=== PATIENT | female | born 1930 | race Caucasian/White ===

== ENCOUNTER 2017-11-01 13:55 | Inpatient (IN) | payer OTHER ==
[2017-11-01] MEDS: SOD CHLORIDE 0.9% 1,000 ML IV ×2 (15:05→17:40)
[2017-11-01 15:08] LABS: HEMATOCRIT 36.5 % (37.0-47.0); HEMOGLOBIN 12.2 g/dl (12.0-16.0); MEAN CORPUSCULAR HEMOGLOBIN 32.9 pg (29.0-33.0); MEAN CORPUSCULAR HGB CONC 33.4 g/dl (32.0-37.0); MEAN CORPUSCULAR VOLUME 98.4 fl (82.0-101.0); MEAN PLATELET VOLUME 9.6 fl (7.4-10.4); PLATELET COUNT 122 10^3/UL (140-415); RED BLOOD COUNT 3.71 10^6/ul (4.20-5.40); RED CELL DISTRIBUTION WIDTH 12.9 % (11.5-14.5)
[2017-11-01 15:08] LABS: WHITE BLOOD COUNT 19.8 10^3/ul (4.8-10.8)
[2017-11-01 15:18] LABS: ADD MAN DIFF? YES; POSITIVE DIFF @See below
[2017-11-01 15:38] LABS: ALANINE AMINOTRANSFERASE 29 IU/L (13-69); ALBUMIN 3.7 g/dl (3.3-4.9); ALBUMIN/GLOBULIN RATIO 1.23; ALKALINE PHOSPHATASE 95 IU/L (42-121); ANION GAP 18 (8-16); ASPARTATE AMINO TRANSFERASE 48 IU/L (15-46); BLOOD UREA NITROGEN 32 mg/dl (7-20); CALCIUM 9.9 mg/dl (8.4-10.2); CARBON DIOXIDE 22 mmol/L (21-31); CHLORIDE 102 mmol/L (97-110); CREATININE 1.41 mg/dl (0.44-1.00); GLUCOSE 110 mg/dl (70-220); LIPASE 43 U/L (23-300); POTASSIUM 5.9 mmol/L (3.5-5.1); SODIUM 136 mmol/L (135-144); TOTAL PROTEIN 6.7 g/dl (6.1-8.1)
[2017-11-01 15:39] LABS: ADD UMIC NO; UR ASCORBIC ACID NEGATIVE (NEGATIVE); UR BILIRUBIN (Dip) NEGATIVE (NEGATIVE); UR BLOOD (Dip) NEGATIVE (NEGATIVE); UR CLARITY CLEAR (CLEAR); UR COLOR YELLOW (YELLOW); UR GLUCOSE (Dip) NEGATIVE (NEGATIVE); UR KETONES (Dip) NEGATIVE (NEGATIVE); UR LEUKOCYTE ESTERASE (Dip) NEGATIVE Leu/ul (NEGATIVE); UR NITRITE (Dip) NEGATIVE (NEGATIVE); UR SPECIFIC GRAVITY (Dip) 1.018 (1.003-1.030); UR TOTAL PROTEIN (Dip) NEGATIVE (NEGATIVE); UR UROBILINOGEN (Dip) 2+ mg/dL (NEGATIVE)
[2017-11-01 15:42] LABS: ANISOCYTOSIS 1+ (0-0); BAND NEUTROPHILS #M 4.1 10^3/ul (0.0-0.6); BAND NEUTROPHILS % (M) 21 % (0-4); EOSINOPHILS % (M) 1 % (0-7); GIANT THROMBO% (M) 1 % (0-0); LYMPHOCYTES #M 0.9 10^3/ul (0.8-2.9); LYMPHOCYTES % (M) 5 % (15-51); MONOCYTE #M 0.3 10^3/ul (0.3-0.9); MONOCYTES % (M) 2 % (0-11); PLATELET ESTIMATE DECREASED; POLYCHROMASIA 3+ (0-0); SEG NEUT #M 14.7 10^3/ul (1.6-7.5); SEGMENTED NEUTROPHILS (M) % 70 % (39-77); SMUDGE%M 8 % (0-0)
[2017-11-01 15:48] LABS: TROPONIN-I 0.018 ng/ml (0.000-0.120)
[2017-11-01] MEDS: CA CHLORIDE 10% 10 ML SYRINGE IV (16:32)
[2017-11-01] MEDS: NA BICARBONATE 8.4% 50 ML SYG IV (16:32)
[2017-11-01] MEDS: FUROSEMIDE 40 MG INJ IV (16:34)
[2017-11-01] MEDS ORDERED: DILTIAZEM 25 MG INJ (16:46)
[2017-11-01] MEDS: DILTIAZEM 25 MG INJ IV (16:50)
[2017-11-01] MEDS: PIPER-TAZO 3.375 GM IV (PMX) 100 ML IVPB (17:40)
[2017-11-01] MEDS ORDERED: ACETAMINOPHEN 325 MG TAB PO (18:00)
[2017-11-01 18:28] LABS: LACTIC ACID 3.8 mmol/L (0.5-2.0)
[2017-11-01] MEDS: SOD CHLORIDE 0.45% 1,000 ML IV (18:33)
[2017-11-01] MEDS: VANCOMYCIN 1 GM (PMX) 250 ML IVPB (18:35)
[2017-11-01] MEDS ORDERED: ONDANSETRON 4 MG INJ IV (19:00)
[2017-11-01] MEDS ORDERED: MAGNESIUM HYDROXIDE 30ML CUP PO (19:00)
[2017-11-01] MEDS ORDERED: hydrALAzine 20 MG INJ IV (19:00)
[2017-11-01] MEDS ORDERED: DOCUSATE SODIUM 100 MG CAP PO (19:00)
[2017-11-01] MEDS ORDERED: NA PHOSPHATE/BIPHOS 133 ML ENEMA PR (19:00)
[2017-11-01] MEDS ORDERED: HYDROCODONE/APAP (5/325) TAB PO (19:00)
[2017-11-01] MEDS ORDERED: NITROGLYCERIN (SL) 0.4 MG TAB SL (19:00)
[2017-11-01] MEDS ORDERED: LORAZEPAM 2 MG INJ IV (19:00)
[2017-11-01] MEDS ORDERED: MECLIZINE 25 MG TAB PO (19:00)
[2017-11-01] MEDS ORDERED: NACL 0.9% 3 ML SYG IV (19:00)
[2017-11-01 19:40] LABS: FREE T4 (FREE THYROXINE) 1.63 ng/dl (0.85-1.93)
[2017-11-01] MEDS: ONDANSETRON 4 MG INJ IV (19:40)
[2017-11-01] MEDS: morphine 2 MG INJ IV (19:41)
[2017-11-01] MEDS ORDERED: HEPARIN 5,000 UNIT/0.5 ML VIAL SC (21:00)
[2017-11-01 23:10] LABS: ANION GAP 14 (8-16); BLOOD UREA NITROGEN 29 mg/dl (7-20); CALCIUM 9.9 mg/dl (8.4-10.2); CARBON DIOXIDE 24 mmol/L (21-31); CHLORIDE 104 mmol/L (97-110); CREATININE 1.35 mg/dl (0.44-1.00); GLUCOSE 103 mg/dl (70-220); POTASSIUM 4.9 mmol/L (3.5-5.1); SODIUM 137 mmol/L (135-144)
[2017-11-01] MEDS: PIPER-TAZO 2.25 GM (PMX) 50 ML IVPB (23:36)
[2017-11-02] MEDS: PIPER-TAZO 2.25 GM (PMX) 50 ML IVPB ×3 (06:17→22:01)
[2017-11-02] MEDS: LEVOTHYROXINE 25 MCG TAB PO (06:18)
[2017-11-02] MEDS: PANTOPRAZOLE 40 MG INJ IV (06:18)
[2017-11-02 08:42] LABS: WHITE BLOOD COUNT 15.8 10^3/ul (4.8-10.8)
[2017-11-02 08:42] LABS: HEMATOCRIT 31.6 % (37.0-47.0); HEMOGLOBIN 10.5 g/dl (12.0-16.0); MEAN CORPUSCULAR HEMOGLOBIN 32.8 pg (29.0-33.0); MEAN CORPUSCULAR HGB CONC 33.2 g/dl (32.0-37.0); MEAN CORPUSCULAR VOLUME 98.8 fl (82.0-101.0); MEAN PLATELET VOLUME 10.6 fl (7.4-10.4); PLATELET COUNT 108 10^3/UL (140-415); RED CELL DISTRIBUTION WIDTH 13.1 % (11.5-14.5)
[2017-11-02 08:58] LABS: ADD MAN DIFF? YES; POSITIVE DIFF @See below
[2017-11-02 09:03] LABS: ANION GAP 14 (8-16); BLOOD UREA NITROGEN 32 mg/dl (7-20); CARBON DIOXIDE 24 mmol/L (21-31); CHLORIDE 104 mmol/L (97-110); CREATININE 1.53 mg/dl (0.44-1.00); GLUCOSE 91 mg/dl (70-220); MAGNESIUM 1.1 mg/dl (1.7-2.5); PHOSPHORUS 3.6 mg/dl (2.5-4.9); POTASSIUM 4.5 mmol/L (3.5-5.1); SODIUM 137 mmol/L (135-144)
[2017-11-02 09:08] LABS: LACTIC ACID 1.7 mmol/L (0.5-2.0)
[2017-11-02 09:16] LABS: CHOLESTEROL 75 mg/dl (100-200)
[2017-11-02 09:16] LABS: CHOL/HDL RATIO 1.9 RATIO; HDL CHOLESTEROL 39 mg/dl (33-92); LDL CHOLESTEROL,CALCULATED 25 mg/dl; TRIGLYCERIDES 56 mg/dl (0-149)
[2017-11-02 09:25] LABS: HEMOGLOBIN A1C 5.4 % (0-5.9)
[2017-11-02 09:33] LABS: THYROID STIMULATING HORMONE 0.711 MIU/L (0.465-4.680)
[2017-11-02] MEDS: SOD CHLORIDE 0.45% 1,000 ML IV ×2 (09:57→21:12)
[2017-11-02 10:53] LABS: BAND NEUTROPHILS #M 2.5 10^3/ul (0.0-0.6); BAND NEUTROPHILS % (M) 16 % (0-4); LYMPHOCYTES #M 1.1 10^3/ul (0.8-2.9); LYMPHOCYTES % (M) 7 % (15-51); MONOCYTE #M 0.6 10^3/ul (0.3-0.9); MONOCYTES % (M) 4 % (0-11); PLATELET ESTIMATE DECREASED; SEG NEUT #M 11.9 10^3/ul (1.6-7.5); SEGMENTED NEUTROPHILS (M) % 73 % (39-77); SMUDGE%M 22 % (0-0)
[2017-11-02] MEDS: MAGNESIUM SULFATE 4 GM/100 ML 100 ML IVPB (12:38)
[2017-11-02 15:07] LABS: LACTIC ACID 1.7 mmol/L (0.5-2.0)
[2017-11-02 19:34] LABS: LACTIC ACID 1.6 mmol/L (0.5-2.0)
[2017-11-02] MEDS: ACETAMINOPHEN 325 MG TAB PO (21:10)
[2017-11-03 01:46] LABS: LACTIC ACID 1.3 mmol/L (0.5-2.0)
[2017-11-03] MEDS: SOD CHLORIDE 0.45% 1,000 ML IV ×3 (06:00→19:36)
[2017-11-03] MEDS: PIPER-TAZO 2.25 GM (PMX) 50 ML IVPB ×3 (06:06→21:33)
[2017-11-03] MEDS: PANTOPRAZOLE 40 MG INJ IV (06:06)
[2017-11-03] MEDS: LEVOTHYROXINE 25 MCG TAB PO (06:06)
[2017-11-03 09:11] LABS: ADD MAN DIFF? NO
[2017-11-03 09:12] LABS: WHITE BLOOD COUNT 14.1 10^3/ul (4.8-10.8)
[2017-11-03 09:12] LABS: BASOPHILS % 0.2 % (0.0-2.0); EOSINOPHILS # 0.1 10^3/ul (0.0-0.5); EOSINOPHILS % 0.4 % (0.0-7.0); HEMATOCRIT 34.1 % (37.0-47.0); HEMOGLOBIN 11.6 g/dl (12.0-16.0); LYMPHOCYTES # 0.9 10^3/ul (0.8-2.9); MEAN CORPUSCULAR VOLUME 97.2 fl (82.0-101.0); MEAN PLATELET VOLUME 10.8 fl (7.4-10.4); MONOCYTE # 0.6 10^3/ul (0.3-0.9); MONOCYTES % 3.9 % (0.0-11.0); NEUTROPHIL # 12.4 10^3/ul (1.6-7.5); NEUTROPHILS % 88.4 % (39.0-77.0); PLATELET COUNT 115 10^3/UL (140-415); RED BLOOD COUNT 3.51 10^6/ul (4.20-5.40); RED CELL DISTRIBUTION WIDTH 12.9 % (11.5-14.5)
[2017-11-03 09:52] LABS: ANION GAP 13 (8-16)
[2017-11-03 09:53] LABS: MAGNESIUM 2.8 mg/dl (1.7-2.5)
[2017-11-03 09:56] LABS: BLOOD UREA NITROGEN 30 mg/dl (7-20); CALCIUM 9.5 mg/dl (8.4-10.2); CARBON DIOXIDE 24 mmol/L (21-31); CHLORIDE 106 mmol/L (97-110); CREATININE 1.47 mg/dl (0.44-1.00); GLUCOSE 79 mg/dl (70-220); POTASSIUM 4.5 mmol/L (3.5-5.1); SODIUM 138 mmol/L (135-144)
[2017-11-03] MEDS ORDERED: morphine LIQ (10 MG/5 ML) CUP PO (19:30)
[2017-11-03] MEDS: ALBUTEROL/IPRATROPIUM (NEB) 3 ML AMP HHN (20:25)
[2017-11-04] MEDS: SOD CHLORIDE 0.45% 1,000 ML IV (00:42)
[2017-11-04] MEDS: PIPER-TAZO 2.25 GM (PMX) 50 ML IVPB (05:54)
[2017-11-04] MEDS: PANTOPRAZOLE 40 MG INJ IV (06:39)
[2017-11-04] MEDS: LEVOTHYROXINE 25 MCG TAB PO (06:39)
[2017-11-04 09:44] LABS: ADD MAN DIFF? NO
[2017-11-04 09:48] LABS: BASOPHILS % 0.2 % (0.0-2.0); EOSINOPHILS # 0.1 10^3/ul (0.0-0.5); EOSINOPHILS % 0.6 % (0.0-7.0); HEMATOCRIT 32.6 % (37.0-47.0); HEMOGLOBIN 10.8 g/dl (12.0-16.0); LYMPHOCYTES # 0.9 10^3/ul (0.8-2.9); LYMPHOCYTES % 9.6 % (15.0-51.0); MEAN CORPUSCULAR HGB CONC 33.1 g/dl (32.0-37.0); MEAN CORPUSCULAR VOLUME 96.7 fl (82.0-101.0); MEAN PLATELET VOLUME 10.5 fl (7.4-10.4); MONOCYTE # 0.4 10^3/ul (0.3-0.9); MONOCYTES % 4.3 % (0.0-11.0); NEUTROPHIL # 7.5 10^3/ul (1.6-7.5); NEUTROPHILS % 84.7 % (39.0-77.0); PLATELET COUNT 141 10^3/UL (140-415); RED BLOOD COUNT 3.37 10^6/ul (4.20-5.40); RED CELL DISTRIBUTION WIDTH 12.8 % (11.5-14.5)
[2017-11-04 09:48] LABS: WHITE BLOOD COUNT 8.9 10^3/ul (4.8-10.8)
[2017-11-04 10:03] LABS: ANION GAP 11 (8-16); BLOOD UREA NITROGEN 18 mg/dl (7-20); CALCIUM 9.4 mg/dl (8.4-10.2); CARBON DIOXIDE 23 mmol/L (21-31); CHLORIDE 111 mmol/L (97-110); CREATININE 1.31 mg/dl (0.44-1.00); GLUCOSE 79 mg/dl (70-220); POTASSIUM 3.7 mmol/L (3.5-5.1); SODIUM 141 mmol/L (135-144)
== END 2017-11-04 12:50 | disposition home or self-care (01) | DRG 872 ==
LOC: E/R 13:55 → TEL 20:35
DX: A41.9 Sepsis, unspecified organism (principal); L03.115 Cellulitis of right lower limb; E87.2 Acidosis; I47.1 Supraventricular tachycardia; N17.9 Acute kidney failure, unspecified; E87.5 Hyperkalemia; E86.0 Dehydration; I48.91 Unspecified atrial fibrillation; E03.9 Hypothyroidism, unspecified; H26.9 Unspecified cataract; I10 Essential (primary) hypertension; M10.9 Gout, unspecified; M19.90 Unspecified osteoarthritis, unspecified site; R19.7 Diarrhea, unspecified; I49.1 Atrial premature depolarization; Z90.49 Acquired absence of other specified parts of digestive tract; Z90.710 Acquired absence of both cervix and uterus
CPT/HCPCS: 36415; 71045; 74176; 80048; 80053; 80061; 81003; 83036; 83605; 83690; 83735; 84100; 84439; 84443; 84484; 85025; 87040; 92526; 92610; 93005; 93971; 94664; 96374; 96375; 97116; 97162; 97166; 97530; 99291-25